=== PATIENT | female | born 1995 | race Caucasian/White ===

== ENCOUNTER 2016-10-10 16:46 | Emergency (ER) | payer BC, MEDICAID ==
--- NOTE | 2016-10-10 17:05 | Emergency Department Record ---
History of Present Illness - General Chief complaint: Bite Insect/other Stated complaint: BITE ON R INNER THIGH Time Seen by Provider: 10/10/16 16:59 Source: Patient Mode of Arrival: Ambulatory Limitations: No limitations - History of Present Illness Initial comments: 20 yo female presents with a annular rash to the right inner thigh that looks like a bullseye. It has been present for a cough days. No known bites or ticks. It does itch at times. No muscle aches, fevers, swollen glands. No streaking. He has spent a lot of time outdoors. No NVD. MD complaint: Discoloration, Rash Onset/Timin -: Days(s) Location: [facility] Severity: Mild Consistency: Intermittent Improves with: None Worsens with: None Context: None Associated symptoms: Denies other symptoms Treatments Prior to Arrival: Benadryl - Related Data Previous Rx's Medication Instructions Recorded Doxycycline Hyclate [Doxycycline] 100 mg PO BID #14 cap 10/10/16 Allergies Allergy/AdvReac Type Severity Reaction Status Date / Time acetaminophen [From Vicodin] AdvReac NAUSEA Verified 10/10/16 16:53 hydrocodone [From Vicodin] AdvReac NAUSEA Verified 10/10/16 16:53 Travel Screening - Travel/Exposure Within Last 30 Days Have you traveled within the last 30 days?: No Review of Systems Constitutional: Denies: Chills, Fever Eyes: Denies: Eye discharge ENT: Denies: Congestion, Throat pain Respiratory: Denies: Cough, Dyspnea Cardiovascular: Denies: Chest pain, Palpitations, Syncope Endocrine: Denies: Fatigue Gastrointestinal: Denies: Abdominal pain, Diarrhea, Nausea, Vomiting Genitourinary: Denies: Dysuria Musculoskeletal: Denies: Arthralgia, Back pain, Joint swelling, Myalgia, Neck pain Skin: Reports: As per HPI, Change in color, Rash. Denies: Bruising Neurological: Denies: Confusion, Headache Psychiatric: Denies: Anxiety Hematological/Lymphatic: Denies: Blood Clots, Easy bleeding, Easy bruising, Swollen glands Past Medical History - SOCIAL HISTORY Smoking Status: Never smoker Alcohol Use: None Drug Use: None - RESPIRATORY Hx Respiratory Disorders: No - CARDIOVASCULAR Hx Cardio Disorders: No - NEURO Hx Neuro Disorders: No - GI Hx GI Disorders: No - Hx Genitourinary Disorders: No - ENDOCRINE Hx Endocrine Disorders: No - MUSCULOSKELETAL Hx Musculoskeletal Disorders: No - PSYCH Hx Psych Problems: No - HEMATOLOGY/ONCOLOGY Hx Hematology/Oncology Disorders: No Family Medical History Any Significant Family History?: No Physical Exam - General General Appearance: Alert, Oriented x3, Cooperative, No acute distress Limitations: No limitations - Head Head exam: Normal inspection - Eye Eye exam: Normal appearance, PERRL - ENT ENT exam: Normal exam Ear exam: Normal external inspection Nasal Exam: Normal inspection Mouth exam: Normal external inspection - Neck Neck exam: Normal inspection. negative: Lymphadenopathy - Respiratory Respiratory exam: Normal lung sounds bilaterally. negative: Respiratory distress - Cardiovascular Cardiovascular Exam: Regular rate, Normal rhythm, Normal heart sounds - Rectal Rectal exam: Deferred - exam: Deferred - Extremities Extremities exam: Normal capillary refill. negative: Normal inspection (rash inner thigh), Calf tenderness, Full ROM, Pedal edema, Tenderness Image of Full Body: 1 - circular bullseye like rash inner thigh, not raised, non tender, no blister , no FB. - Neurological Neurological exam: Alert, Normal gait, Oriented X3, Reflexes normal - Psychiatric Psychiatric exam: Normal affect, Normal mood - Skin Skin exam: Rash (as noted above) Course Vital Signs 10/10/16 16:49 Temperature 97.9 F Pulse Rate 88 Respiratory 20 Rate Blood Pressure 134/79 Pulse Ox 98 - Reevaluation(s) Reevaluation #1: I discussed the rash with the patient This cough represent a Lyme rash with it's bullseye appearance and she works at a camp in [facility] I explained some of the symptoms. If she becomes symptomatic she would need testing at that time. 10/10/16 17:02 Disposition Disposition: Discharge Clinical Impression: Rash Disposition: Home, Self-Care Condition: (1) Good Instructions: Lyme Disease (ED) Additional Instructions: Call your doctor for a recheck Seeks medical care if you have fever, swollen glands, body aches or any new concerns. Prescriptions: Doxycycline Hyclate [Doxycycline] 100 mg PO BID #14 cap Forms: Patient Portal Access Time of Disposition: 17:07
== END 2016-10-10 17:13 | disposition home or self-care (01) ==
LOC: ER 16:46
DX: R21 Rash and other nonspecific skin eruption (principal)
CPT/HCPCS: 99282